=== PATIENT | female | born 1980 | race Caucasian/White ===

== ENCOUNTER → 2018-03-19 16:08 | Outpatient (CLI) | payer OTHER, SELFPAY ==
--- NOTE | 2018-03-20 09:17 | DIET.PN ---
Met for an initial nutrition consult. Pt desires assistance with wt loss. Hasn't really tried to diet and states she doesn't know how to diet or eat healthy. I eat like a teenage boy w/lots of convenience foods, fast food, high carbs. Has been overweight all her life, increasing over years with big increase of approx 30# due to stressful life event about 2 years ago. Is single, school age teacher, lives alone. Exercise: Does not exercise and isn't a gym person. Has arthritis in knees so walking causes pain, but is able to walk. Has a dog that she needs to get out on walks more. Considering pool exercise. DX: Morbid obesity Weights: at high school graduation: 180# 2016: 215# Current/highest: 247# WT today (my scale): 241.5# BMI: 42 Wt goal: 165# (shelter) Ht: 64 Usual diet: Two meals per day w/lite/snack lunch. Breakfast- Protein smoothie Lunch- crax, cheese. Dinner- fast food. Eats some vegies but doesn't often take time to prepare. Likes vegies and fruit. Assessment: Pt demonstrates poor knowledge of balanced diet; little effort to choose/prepare healthful meals, though appears ready to change this. Appears willing to make lifestyle changes, including increasing physical activity. Is realistic in expection of wt loss- anticipating over a year to reach wt goal (75# loss) Intervention: Provided education on healthy plate model, portion control, anti-inflammatory foods vs inflammatory foods; importance of exercise Plan/Goals: Keep written food record, comparing to healthy plate model Increase exercise - 1st goal, walk 3 times/week, increasing to 6-7X weekly F/U in 2 weeks - will assess body comp
== END ==
PROVIDERS: PCP Nurse Practitioner Family; Visit Provider Nurse Practitioner Family
DX: E66.01 Morbid (severe) obesity due to excess calories (principal); Z68.41 Body mass index [BMI] 40.0-44.9, adult
CPT/HCPCS: 97802

== ENCOUNTER → 2020-01-12 11:57 | Outpatient (CLI) | payer OTHER, SELFPAY ==
[2020-01-12 13:13] LABS: Add Manual Diff / Slide Review NO; Basophils Absolute Auto 100 /uL (0-100); Basophils Percent Auto 0.6 % (0-2); Eosinophils Absolute Auto 100 /uL (0-450); Eosinophils Percent Auto 1.3 % (2-4); Hematocrit 43.9 % (36-46); Hemoglobin 14.9 g/dL (12.0-16.0); Lymphocytes Absolute Auto 2000 /uL (1100-4500); Lymphocytes Percent Auto 20.9 % (25-40); Mean Corpuscular HGB Conc 33.9 % (30-36); Mean Corpuscular Hemoglobin 29.5 PG (26-34); Mean Corpuscular Volume 86.9 fL (80-100); Monocytes Absolute Auto 800 /uL (0-900); Monocytes Percent Auto 8.7 % (3-14); Neutrophils Absolute Auto 6600 /uL (1500-7000); Neutrophils Percent Auto 68.5 % (50-75); Platelet Count 301 X10^3/uL (150-400); Red Blood Cell Count 5.05 X10^6/uL (4.0-5.2); Red Cell Distribution Width 13.1 % (11.6-14.8); White Blood Cell Count 9.7 X10^3/uL (4.5-11.0)
[2020-01-12 13:54] LABS: Alanine Aminotransferase 37 IU/L (<35); Albumin 4.3 g/dL (3.5-5.0); Albumin Globulin Ratio 1.3 (1.0-2.8); Alkaline Phosphatase 76 U/L (38-126); Aspartate Aminotransferase 31 IU/L (14-36); Bilirubin Total 0.4 mg/dL (0.2-1.3); Blood Urea Nitrogen 13 mg/dL (7-17); Calcium 9.4 mg/dL (8.4-10.2); Carbon Dioxide 27 mmol/L (22-32); Chloride 103 mmol/L (98-107); Cholesterol 187 mg/dL (140-199); Estimated Glomerular Filt Rate > 60.0 mL/min (>60); Globulin 3.3 g/dL (1.7-4.1); Glucose 91 mg/dL (70-100); HDL Cholesterol 42 mg/dL (40-60); HEMOLYSIS < 15 (0-50); LDL Cholesterol Calculated 122 mg/dL (<100); Potassium 4.7 mmol/L (3.4-5.1); Sodium 138 mmol/L (137-145); Total Protein 7.6 g/dL (6.3-8.2); Triglycerides 116 mg/dL (35-150)
[2020-01-12 14:23] LABS: TSH w/ Reflex to FT4 3.41 uIU/mL (0.47-4.68)
[2020-01-12 15:18] LABS: Vitamin D 25 Hydroxy (D3) 25.1 ng/mL (30.0-100.0)
== END ==
PROVIDERS: PCP Registered Nurse; Referring Provider Registered Nurse; Visit Provider Registered Nurse
DX: E55.9 Vitamin D deficiency, unspecified (principal); R53.83 Other fatigue; Z82.49 Family history of ischemic heart disease and other diseases of the circulatory system
CPT/HCPCS: 36415; 80053; 80061; 82306; 84443; 85025

== ENCOUNTER → 2020-01-14 15:24 | Outpatient (CLI) | payer OTHER, SELFPAY ==
--- NOTE | 2020-01-14 15:26 | DI.US.S_ITS ---
PROCEDURE: US SOFT TISSUE HEAD AND NECK INDICATIONS: LUMP ON NECK TECHNIQUE: Real-time scanning was performed of the neck region of interest, with image documentation. COMPARISON: [facility], , US ABDOMEN LIMITED, 01/14/2020, 15:44. FINDINGS: Within the submental region, there are 3 normal-sized lymph nodes seen, which measure as follows: 0.6 x 0.5 x 0.6 cm 0.4 x 0.5 x 0.4 cm 0.5 x 0.4 x 0.5 cm IMPRESSION: Normal-sized lymph nodes are seen within the submental region. If it would be helpful for clinical management decision making, please consider a dedicated neck CT with IV contrast for further evaluation. Dictated by: Anuj Paredes M.D. on 01/14/2020 at 15:16 Approved by: Anuj Paredes M.D. on 01/14/2020 at 15:17
--- NOTE | 2020-01-14 15:26 | DI.US.S_ITS ---
PROCEDURE: US ABDOMEN LIMITED INDICATIONS: PALABLE LUMPS RIGHT AND LEFT ABDOMEN TECHNIQUE: Real-time focused scanning was performed of the abdomen, with image documentation. COMPARISON: [facility], , US SOFT TISSUE HEAD AND NECK, 01/14/2020, 15:58. FINDINGS: Scanning is performed of the areas of clinical concern involving both sides of the anterior abdominal wall. At the sites, no masses or fluid collections are seen. No lipomas are seen. IMPRESSION: Negative ultrasound. Dictated by: Anuj Paredes M.D. on 01/14/2020 at 15:15 Approved by: Anuj Paredes M.D. on 01/14/2020 at 15:16
[2020-01-15 08:14] LABS: Fecal Immunochemical Test Negative (Negative)
== END ==
PROVIDERS: PCP Registered Nurse; Referring Provider Registered Nurse; Visit Provider Registered Nurse
DX: R22.1 Localized swelling, mass and lump, neck (principal); R22.2 Localized swelling, mass and lump, trunk; Z79.1 Long term (current) use of non-steroidal anti-inflammatories (NSAID)
CPT/HCPCS: 76536; 76705; 82274

== ENCOUNTER → 2020-01-23 11:19 | Outpatient (CLI) | payer OTHER, SELFPAY ==
--- NOTE | 2020-01-23 12:12 | DI.CT.S_ITS ---
PROCEDURE: CT SOFT TISSUE NECK W CON INDICATIONS: lump in neck TECHNIQUE: After the administration of intravenous contrast, 3.0 mm axial sections acquired from the sella to the aortic arch. Additional oblique axial 3.0 mm sections acquired through the pharynx. 3 mm thick coronal and sagittal reformats were generated. For radiation dose reduction, the following was used: automated exposure control. COMPARISON: [facility], , SOFT TISSUE HEAD AND NECK, 01/14/2020, 15:58. FINDINGS: Image quality: Excellent. Lymph nodes: No enlarged lymph nodes seen throughout the neck. There is an ovoid soft tissue radiodensity in the fatty soft tissues just to the right of midline, corresponding to the exact site of patient-located clinical concern, a palpable abnormality that she has noted that is variable in its expression, over 2 years. This measures 6 x 6 x 5 mm. Vessels: Visualized vasculature appears patent. Neck spaces: The oropharynx, nasopharynx, and pharynx demonstrate no mucosal lesions. The vocal cords, false vocal cords, pyriform sinuses, epiglottis, vallecula, and tongue base all appear normal. Extramucosal spaces appear unremarkable. Glands: The parotid and submandibular glands appear normal. Thyroid gland normal. Miscellaneous: Visualized brain and orbits appear normal. Lung apices appear clear. Superficial soft tissues appear normal. Bones: No suspicious bony lesions. Visualized sinuses and mastoids appear unremarkable. IMPRESSION: 6 x 6 x 5 mm rounded soft tissue structure within the fatty soft tissues in the submental area centered just to the right of midline, without adjacent inflammation. No enlarged lymph nodes are found. No inflammatory process is seen. Continued clinical follow-up is recommended. Given long history of this structure with a variable degree of symptomatology it likely is benign and most likely represents a small intermittently reactive lymph node. If clinically desired a surgical consultation for excisional biopsy could be obtained but based on the current imaging findings surgical intervention would not be recommended. Dictated by: Barry Phillip M.D. on 01/23/2020 at 14:45 Approved by: Barry Phillip M.D. on 01/23/2020 at 14:53
== END ==
PROVIDERS: PCP Registered Nurse; Referring Provider Registered Nurse; Visit Provider Registered Nurse
DX: R22.1 Localized swelling, mass and lump, neck (principal)
CPT/HCPCS: 70491; Q9967

== ENCOUNTER → 2020-02-06 15:32 | Outpatient (CLI) | payer OTHER, SELFPAY ==
--- NOTE | 2020-02-06 15:41 | DI.MG.S_ITS ---
Patient Name: JARED RAMON date: 1980 Sex: F Attending Physician: Shaista Silveira Indications: Date: 02/06/2020 15:37 At the request of: HARRISON SKELTON Procedure: MM screening mammo BI BILATERAL DIGITAL SCREENING MAMMOGRAM 3D/2D WITH CAD: 02/06/2020 CLINICAL: Baseline exam. Routine screening. No prior exams were available for comparison. Current study was also evaluated with a Computer Aided Detection (CAD) system. There is an enlarged lymph node in the right breast posterior depth superior region seen on the mediolateral oblique view only. No other significant masses, calcifications, or other findings are seen in either breast. IMPRESSION: INCOMPLETE: NEEDS ADDITIONAL IMAGING EVALUATION The enlarged lymph node in the right breast is indeterminate. A diagnostic mammogram and ultrasound is recommended. This exam was interpreted at Station ID: [id number]. NOTE: For mammograms, a report in lay terms will be sent to the patient. Approximately 15% of breast malignancies will not be visualized mammographically. In the management of a palpable breast mass, a negative mammogram must not discourage biopsy of a clinically suspicious lesion. Electronically Signed By: Bebeto Park M.D., jr/obey:02/06/2020 16:21:44 letter sent: Additional Imaging Needed ACR BI-RADS Category 0: Incomplete 3340F
== END ==
PROVIDERS: PCP Registered Nurse; Referring Provider Registered Nurse; Visit Provider Registered Nurse
DX: Z12.31 Encounter for screening mammogram for malignant neoplasm of breast (principal)
CPT/HCPCS: 77063; 77067

== ENCOUNTER → 2020-03-10 12:30 | Outpatient (CLI) | payer OTHER, SELFPAY ==
--- NOTE | 2020-03-10 | DI.MG.S_ITS ---
UNILATERAL RIGHT DIGITAL DIAGNOSTIC MAMMOGRAM 3D/2D WITH ADDITIONAL VIEWS: 03/10/2020 CLINICAL: Additional evaluation requested from prior study. Comparison is made to exam dated: 02/06/2020 [facility]. The tissue of right breast is heterogeneously dense. This may lower the sensitivity of mammography. There is a lymph node in the right breast posterior depth superior region seen on the mediolateral oblique view only. No other significant masses or calcifications are seen in the breast. IMPRESSION: INCOMPLETE: NEEDS ADDITIONAL IMAGING EVALUATION The lymph node in the right breast is indeterminate. An ultrasound is recommended. This exam was interpreted at Station ID: [id number]. NOTE: For mammograms, a report in lay terms will be sent to the patient. Approximately 15% of breast malignancies will not be visualized mammographically. In the management of a palpable breast mass, a negative mammogram must not discourage biopsy of a clinically suspicious lesion. Electronically Signed By: Bebeto Park M.D., jr/obey:03/10/2020 14:00:49 ACR BI-RADS Category 0: Incomplete 3340F
== END ==
PROVIDERS: PCP Registered Nurse; Referring Provider Registered Nurse; Visit Provider Registered Nurse
DX: R92.8 Other abnormal and inconclusive findings on diagnostic imaging of breast (principal)
CPT/HCPCS: 77065; G0279

== ENCOUNTER → 2021-03-21 16:27 | Outpatient (CLI) | payer OTHER, SELFPAY ==
[2021-03-21 17:29] LABS: Alanine Aminotransferase 29 IU/L (<35); Albumin 4.7 g/dL (3.5-5.0); Albumin Globulin Ratio 1.6 (1.0-2.8); Alkaline Phosphatase 69 U/L (38-126); Aspartate Aminotransferase 29 IU/L (14-36); BUN Creatinine Ratio 29.3 (6-22); Bilirubin Total 0.5 mg/dL (0.2-1.3); Blood Urea Nitrogen 17 mg/dL (7-17); Calcium 10.1 mg/dL (8.4-10.2); Carbon Dioxide 27 mmol/L (22-32); Chloride 101 mmol/L (98-107); Cholesterol 207 mg/dL (140-199); Estimated Glomerular Filt Rate > 60.0 mL/min (>60); Glucose 80 mg/dL (70-100); HDL Cholesterol 55 mg/dL (40-60); HEMOLYSIS < 15 (0-50); LDL Cholesterol Calculated 125 mg/dL (<100); Potassium 4.6 mmol/L (3.4-5.1); Sodium 139 mmol/L (137-145); Total Protein 7.7 g/dL (6.3-8.2); Triglycerides 134 mg/dL (35-150)
== END ==
PROVIDERS: PCP Registered Nurse; Referring Provider Registered Nurse; Visit Provider Registered Nurse
DX: E78.5 Hyperlipidemia, unspecified (principal); Z85.43 Personal history of malignant neoplasm of ovary; I10 Essential (primary) hypertension
CPT/HCPCS: 36415; 80053; 80061; 86304

== ENCOUNTER → 2021-11-25 16:55 | Outpatient (CLI) | payer OTHER, SELFPAY ==
[2021-11-25 17:47] LABS: Hematocrit 39.9 % (36-46); Hemoglobin 13.7 g/dL (12.0-16.0); Mean Corpuscular HGB Conc 34.3 % (30-36); Mean Corpuscular Hemoglobin 29.8 PG (26-34); Mean Corpuscular Volume 86.9 fL (80-100); Platelet Count 312 X10^3/uL (150-400); Red Cell Distribution Width 13.3 % (11.6-14.8); White Blood Cell Count 7.8 X10^3/uL (4.5-11.0)
[2021-11-25 18:06] LABS: Alanine Aminotransferase 20 IU/L (<35); Albumin 4.2 g/dL (3.5-5.0); Albumin Globulin Ratio 1.2 (1.0-2.8); Alkaline Phosphatase 64 U/L (38-126); Aspartate Aminotransferase 24 IU/L (14-36); BUN Creatinine Ratio 21.5 (6-22); Bilirubin Total 0.5 mg/dL (0.2-1.3); Blood Urea Nitrogen 14 mg/dL (7-17); Carbon Dioxide 29 mmol/L (22-32); Chloride 104 mmol/L (98-107); Cholesterol 214 mg/dL (140-199); Estimated Glomerular Filt Rate > 60 mL/min (>60); Globulin 3.4 g/dL (1.7-4.1); Glucose 115 mg/dL (70-100); HDL Cholesterol 44 mg/dL (40-60); HEMOLYSIS < 15 (0-50); LDL Cholesterol Calculated 131 mg/dL (<100); Potassium 3.8 mmol/L (3.4-5.1); Sodium 138 mmol/L (137-145); Total Protein 7.6 g/dL (6.3-8.2); Triglycerides 195 mg/dL (35-150)
[2021-11-25 18:35] LABS: Cancer Antigen 125 9.6 U/mL (0-35)
[2021-11-25 19:47] LABS: TSH w/ Reflex to FT4 1.21 uIU/mL (0.47-4.68)
== END ==
PROVIDERS: PCP Internal Medicine; Referring Provider Internal Medicine; Visit Provider Internal Medicine
DX: E78.2 Mixed hyperlipidemia (principal); I10 Essential (primary) hypertension; Z85.43 Personal history of malignant neoplasm of ovary
CPT/HCPCS: 36415; 80053; 80061; 84443; 85027; 86304

== ENCOUNTER → 2022-01-25 08:49 | Outpatient (CLI) | payer OTHER, SELFPAY ==
--- NOTE | 2022-01-25 | DI.MG.S_ITS ---
BILATERAL DIGITAL SCREENING MAMMOGRAM 3D/2D WITH CAD: 01/25/2022 CLINICAL: Routine screening. Comparison is made to exams dated: 03/10/2020 mammogram and 02/06/2020 mammogram - [facility]. Both breasts are almost entirely fatty (category a/<25% glandular tissue). Current study was also evaluated with a Computer Aided Detection (CAD) system. No significant masses, calcifications, or other findings are seen in either breast. There has been no significant interval change. IMPRESSION: NEGATIVE There is no mammographic evidence of malignancy. A 1 year screening mammogram is recommended. Based on the Tyrer Cuzick model (a risk assessment model) the patient's lifetime risk is 6.2% and her 10 year risk is 1.0%. According to the ACR, ACS, and NCCN guidelines, an annual breast MRI exam along with mammogram is recommended if the patient's lifetime risk is 20% or greater. This exam was interpreted at Station ID: [id number]. NOTE: For mammograms, a report in lay terms will be sent to the patient. Approximately 15% of breast malignancies will not be visualized mammographically. In the management of a palpable breast mass, a negative mammogram must not discourage biopsy of a clinically suspicious lesion. Electronically Signed By: Aly colvin/obey:01/25/2022 12:45:07 letter sent: Normal Exam ACR BI-RADS Category 1: Negative [id number]
--- NOTE | 2022-01-25 08:52 | DI.RAD.S_ITS ---
PROCEDURE: XR DEXA AXIAL SKELETON INDICATIONS: Surgical menopause COMPARISON: None. FINDINGS: This blank DEXA report has been sent in error by the PACS system. The correct and complete report will be forthcoming in 1-2 days. Thank you for your patience and understanding. Dictated by: Bebeto Park M.D. on 01/25/2022 at 15:50 Approved by: Bebeto Park M.D. on 01/25/2022 at 15:57
== END ==
PROVIDERS: PCP Internal Medicine; Referring Provider Internal Medicine; Visit Provider Internal Medicine
DX: Z78.0 Asymptomatic menopausal state (principal); Z12.31 Encounter for screening mammogram for malignant neoplasm of breast; E89.40 Asymptomatic postprocedural ovarian failure; M85.852 Other specified disorders of bone density and structure, left thigh; Z92.23 Personal history of estrogen therapy; Z90.710 Acquired absence of both cervix and uterus
CPT/HCPCS: 77063; 77067; 77080

== ENCOUNTER → 2022-08-04 08:42 | Outpatient (CLI) | payer OTHER, SELFPAY ==
--- NOTE | 2022-08-04 08:45 | DI.US.S_ITS ---
PROCEDURE: US PELVIC COMPLETE INDICATIONS: Post menopausal bleeding TECHNIQUE: Real-time scanning was performed of the pelvic organs, with image documentation. Additional endovaginal scanning was necessary due to incomplete visualization of the adnexal and endometrial structures by transabdominal scanning. COMPARISON: None. FINDINGS: Uterus: Uterus is anteverted and normal in size at 9.0 x 4.0 x 4.7 cm. The myometrium is homogeneous. The endometrium measures 10 mm combined thickness. Ovaries: Status post bilateral oophorectomy. Other: No pathologic free abdominal or pelvic fluid. IMPRESSION: Unremarkable sonographic appearance of the pelvis. Status post bilateral oophorectomy. We strive to produce accurate, complete, and clear reports of imaging services. To assist us in improving patient care, this report was composed using standard report templates and voice recognition software. Therefore, it may contain abnormal punctuation, insertions and/or omissions. Occasional wrong-word or sound-alike substitutions may occur. Though we review the report and make efforts to correct it, we do recommend that the report be read carefully in proper context to recognize any text inaccuracies. Dictated by: Gibran Jernigan M.D. on 08/04/2022 at 12:09 Approved by: Gibran Jernigan M.D. on 08/04/2022 at 12:25
== END ==
PROVIDERS: PCP Internal Medicine; Referring Provider Obstetrics & Gynecology; Visit Provider Obstetrics & Gynecology
DX: N95.0 Postmenopausal bleeding (principal); Z79.890 Hormone replacement therapy; Z90.722 Acquired absence of ovaries, bilateral
CPT/HCPCS: 76830; 76856

== ENCOUNTER → 2022-10-02 16:14 | Outpatient (CLI) | payer OTHER, SELFPAY ==
--- NOTE | 2022-10-02 16:15 | DI.RAD.S_ITS ---
PROCEDURE: XR KNEE RT 3V INDICATIONS: knee pain TECHNIQUE: 3 views of the knee were acquired. COMPARISON: [facility] [place], [place], XR KNEE ARTHRITIC SERIES , 05/23/2017, 14:48. FINDINGS: Bones: No fractures or dislocations. Tricompartmental degenerative changes of the knee are present. Severe medial compartment joint space narrowing and spurring. Moderate lateral and patellofemoral compartment narrowing and spurring. Soft tissues: No joint effusion. . IMPRESSION: 1. No acute fracture identified. 2. Tricompartmental degenerative changes of the knee. Dictated by: Kevin Hurtado M.D. on 10/02/2022 at 17:38 Approved by: Kevin Hurtado M.D. on 10/02/2022 at 17:39
--- NOTE | 2022-10-02 16:15 | DI.RAD.S_ITS ---
PROCEDURE: XR KNEE LT 3V INDICATIONS: knee pain TECHNIQUE: 3 views of the knee were acquired. COMPARISON: [facility] [place], RANDEE, XR KNEE ARTHRITIC SERIES , 05/23/2017, 14:48. FINDINGS: Bones: No acute fracture or dislocation identified. Severe medial and patellofemoral compartment joint space loss and spurring. Mild-moderate lateral compartment joint space loss and spurring. Soft tissues: No joint effusion. IMPRESSION: 1. No acute fracture identified. 2. Tricompartmental degenerative changes of the knee, severe at the medial and patellofemoral compartments. Dictated by: Kevin Hurtado M.D. on 10/02/2022 at 17:34 Approved by: Kevin Hurtado M.D. on 10/02/2022 at 17:38
== END ==
PROVIDERS: PCP Internal Medicine; Referring Provider Internal Medicine; Visit Provider Internal Medicine
DX: M15.9 Polyosteoarthritis, unspecified (principal)
CPT/HCPCS: 73562

== ENCOUNTER → 2023-05-22 11:32 | Outpatient (CLI) | payer OTHER, SELFPAY ==
--- NOTE | 2023-05-22 | DI.MG.S_ITS ---
BILATERAL DIGITAL SCREENING MAMMOGRAM 3D/2D WITH CAD: 05/22/2023 CLINICAL: Routine screening. Comparison is made to exams dated: 01/25/2022 mammogram and 02/06/2020 mammogram - [facility]. Both breasts are almost entirely fatty (category a/<25% glandular tissue). Current study was also evaluated with a Computer Aided Detection (CAD) system. No significant masses, calcifications, or other findings are seen in either breast. There has been no significant interval change. IMPRESSION: NEGATIVE There is no mammographic evidence of malignancy. A 1 year screening mammogram is recommended. Based on the Tyrer Cuzick model (a risk assessment model) the patient's lifetime risk is 6.2% and her 10 year risk is 1.0%. According to the ACR, ACS, and NCCN guidelines, an annual breast MRI exam along with mammogram is recommended if the patient's lifetime risk is 20% or greater. This exam was interpreted at Station ID: [id number]. NOTE: For mammograms, a report in lay terms will be sent to the patient. Approximately 15% of breast malignancies will not be visualized mammographically. In the management of a palpable breast mass, a negative mammogram must not discourage biopsy of a clinically suspicious lesion. Electronically Signed By: Samantha reddy/obey:05/22/2023 14:44:03 letter sent: Normal Exam ACR BI-RADS Category 1: Negative 3341F
== END ==
PROVIDERS: PCP Internal Medicine; Referring Provider Internal Medicine; Visit Provider Internal Medicine
DX: Z12.31 Encounter for screening mammogram for malignant neoplasm of breast (principal)
CPT/HCPCS: 77063; 77067

== ENCOUNTER → 2023-10-27 08:58 | Outpatient (CLI) | payer OTHER, SELFPAY ==
[2023-10-27 09:24] LABS: Hematocrit 41.1 % (36-46); Hemoglobin 13.6 g/dL (12.0-16.0); Mean Corpuscular Hemoglobin 29.2 PG (26-34); Mean Corpuscular Volume 88.3 fL (80-100); Platelet Count 292 X10^3/uL (150-400); Red Blood Cell Count 4.66 X10^6/uL (4.0-5.2); Red Cell Distribution Width 14.1 % (11.6-14.8)
[2023-10-27 09:32] LABS: Hemoglobin A1C% w Est Avg Glu 5.4 % (4.0-6.0)
[2023-10-27 09:36] LABS: Alanine Aminotransferase 23 IU/L (<35); Albumin 4.1 g/dL (3.5-5.0); Albumin Globulin Ratio 1.4 (1.0-2.8); Alkaline Phosphatase 59 U/L (38-126); Aspartate Aminotransferase 25 IU/L (14-36); BUN Creatinine Ratio 36.8 (6-22); Bilirubin Total 0.5 mg/dL (0.2-1.3); Blood Urea Nitrogen 21 mg/dL (7-17); Calcium 8.5 mg/dL (8.4-10.2); Carbon Dioxide 28 mmol/L (22-32); Chloride 108 mmol/L (98-107); Cholesterol 213 mg/dL (140-199); Estimated Glomerular Filt Rate > 60 mL/min (>60); Globulin 2.9 g/dL (1.7-4.1); Glucose 95 mg/dL (70-100); HDL Cholesterol 51 mg/dL (40-60); HEMOLYSIS 21 (0-50); LDL Cholesterol Calculated 122 mg/dL (<100); Potassium 4.7 mmol/L (3.4-5.1); Sodium 142 mmol/L (137-145); Triglycerides 202 mg/dL (35-150)
[2023-10-27 10:07] LABS: TSH w/ Reflex to FT4 1.29 uIU/mL (0.47-4.68)
[2023-10-27 10:08] LABS: Cortisol AM (Before 10AM) 9.98 ug/dL (4.46-22.7)
== END ==
PROVIDERS: PCP Internal Medicine; Referring Provider Internal Medicine; Visit Provider Internal Medicine
DX: R73.01 Impaired fasting glucose (principal); I10 Essential (primary) hypertension; E78.2 Mixed hyperlipidemia; E24.0 Pituitary-dependent Cushing's disease
CPT/HCPCS: 36415; 80053; 80061; 82533; 83036; 84443; 85027

== ENCOUNTER 2024-01-22 09:16 | Day surgery (SDC) | payer OTHER, SELFPAY ==
[2024-01-22] MEDS: LACTATED RINGERS 1,000 ML 42 ML IV (09:44)
[2024-01-22 10:04] VITALS: BP 148/85; PULSE 62; RESP 18; TEMP 36.4; O2SAT 93
--- NOTE | 2024-01-22 10:24 | P.HP_ITS ---
History of Present Illness History of Present Illness Date Patient Seen: 01/22/24 Time Patient Seen: 10:24 Chief complaint: SDC Narrative: 43-year-old woman here for screening colonoscopy. She had a previous colonoscopy 20 years ago which was normal. No family history of colon cancer. No abdominal concerns today. [facility] Medical History Venous (peripheral) insufficiency GERD without esophagitis Osteopenia Primary osteoarthritis involving multiple joints Severe obesity (BMI >= 40) Mixed hyperlipidemia Wears glasses Vitamin D deficiency Family history of heart disease Surgical History History of bilateral oophorectomy Anesthesia History of abdominoplasty (~2011) History of knee surgery (~2008) History of removal of ovarian cyst Family History Father Hypertension Mother Hyperlipidemia Hypertension Grandfather Cancer Hypertension Grandmother Hypertension Hyperlipidemia History of heart disease Grandfather Cancer Social History details: Single, no children, 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 Smoking Status: Never smoker alcohol intake: never Meds Home Medications and Allergies Home Medications Medication Instructions Recorded Confirmed Type estradiol 0.1 mg/24 hr semiweekly 1 patch transdermal 2XW #8 patches 06/22/23 09/24/23 Rx transdermal patch progesterone micronized 100 mg 100 mg PO QAM hormone replacement 06/22/23 09/24/23 Rx capsule therapy 30 days #30 caps amlodipine 10 mg tablet (Norvasc) 10 mg PO DAILY HTN #90 tabs 09/24/23 01/22/24 Rx losartan 100 mg tablet 100 mg PO DAILY HTN #90 tabs 09/24/23 01/22/24 Rx meloxicam 15 mg tablet 15 mg PO DAILY #90 tabs 09/24/23 09/24/23 Rx metoprolol succinate 25 mg 25 mg PO DAILY hypertension #90 09/24/23 01/22/24 Rx tablet,extended release 24 hr tabs minoxidil 2.5 mg tablet 5 mg (2 x 2.5 mg) PO DAILY #180 09/24/23 09/24/23 Rx tabs sertraline 100 mg tablet 100 mg PO DAILY #90 tabs 09/24/23 09/24/23 Rx sodium,potassium,mag sulfates 17.5 See Rx Instructions PO .COMPLEX 12/13/23 Rx gram-3.13 gram-1.6 gram oral soln #354 mL (Suprep Bowel Prep Kit) Allergies Allergy/AdvReac Type Severity Reaction Status Date / Time morphine Allergy Intermediate Unconscious Verified 01/22/24 09:54 Exam Vital Signs (past 8 hours): - 01/22/24 10:04 Temperature 97.5 F L Pulse Rate 62 Respiratory Rate 18 Blood Pressure 148/85 H Pulse Oximetry 93 Oxygen Delivery Method Room Air Oxygen Delivery Method Room Air Narrative Exam Narrative: General adult woman alert oriented no acute distress Chest nonlabored respiration Extremities warm well perfused Assessment & Plan Assessment & Plan narrative: The patient requires colorectal screening and colonoscopy is recommended. Technical details were discussed. Risks, benefits, alternatives explained. Risks including but not limited to myocardial infarction, aspiration, bleeding, pain, missed lesion, incomplete examination, need for further radiographic studies, intestinal injury, and need for major abdominal surgery were discussed. All questions were answered to their satisfaction, and they are in agreement with this plan. Time-Based Coding :: [TOTAL MINUTES] spent with patient and on the chart (including review of chart, obtaining history, exam, reviewing outside data, placing orders, documenting exam and treatment plan, and counseling patient) on [DATE].
[2024-01-22 10:45] VITALS: BP 109/71; PULSE 61; RESP 19; TEMP 36.4; O2SAT 94
[2024-01-22 10:50] VITALS: BP 112/62; PULSE 62; RESP 10; TEMP 36.6; O2SAT 94
--- NOTE | 2024-01-22 10:55 | P.OP.COLON_ITS ---
Operative Date/Time/Diagnoses Date of procedure: 01/22/24 Time of procedure: 10:55 Pre-op diagnosis: Colorectal screening Procedure & Clinicians Study performed: Screening colonoscopy Same procedure as scheduled: Yes Indications: Colorectal screening Surgeon: Lion Retana Procedure Notes Procedure in detail: The history and physical was performed/updated and the patient is ASA class is 2. The procedure was discussed in detail with the patient. Potential risks co mplications including infection, bleeding, missed diagnosis, perforation, need for surgery, and were explained. Their questions were answered and informed consent was obtained. Patient was brought to the procedure room and placed standard monitoring equipment. The patient's vital signs were monitored continuously throughout the entire procedure. Prior to starting time-out was performed. The patient was placed in the left lateral recumbent position. Procedural sedation was administered by anesthesia. Examination began with a thorough inspection of the perianal area there was no evidence of fissures, fistulae, external hemorrhoids or cutaneous malignancy. The colonoscopy scope was then placed into the anal canal and was advanced to the cecum, which was identified by the ileocecal valve, the appendiceal orifice and the confluence of the taenia. The scope was then slowly withdrawn examining colon thoroughly in all directions, irrigating it of any residual stool. The scope was retroflexed within the rectum The patient tolerated the procedure well. They will be discharged once criteria are met. The prep was of good/excellent quality. The withdrawl time was 7 minutes. FINDINGS * Unremarkable colonoscopy. Normal healthy colonic mucosa without mass or polyps. Specimen(s): none sent Impression: Normal colonoscopy Post-procedure Recommendations: Colonoscopy in 10 years Disposition: same day surgery
== END 2024-01-22 11:05 | disposition home or self-care (01) ==
PROVIDERS: PCP Internal Medicine; Referring Provider Surgery; Visit Provider Surgery
PROC: 0DJD8ZZ Inspection of Lower Intestinal Tract, Via Natural or Artificial Opening Endoscopic (ICD-10-PCS; CPT 45378; principal; 2024-01-22 10:45)
DX: Z12.11 Encounter for screening for malignant neoplasm of colon (principal)
CPT/HCPCS: 45378; J2704

== ENCOUNTER → 2024-02-20 08:27 | Outpatient (CLI) | payer OTHER, SELFPAY ==
--- NOTE | 2024-02-20 | DI.RAD.S_ITS ---
PROCEDURE: FL UPPER GI SERIES INDICATIONS: Gastro-esophageal reflux disease without esophagitis COMPARISON: None. FINDINGS: Esophagus: There is mildly weakened esophageal peristalsis. No strictures, extrinsic mass effects, or diverticula. Trace elicited gastroesophageal reflux. No hiatal hernia. Stomach: Stomach is normally distensible, without extrinsic mass effects. Pylorus and duodenal bulb demonstrate normal single-contrast morphology. There is ready transit of contrast through the gastric outlet into the small bowel. IMPRESSION: Mild esophageal dysmotility, and trace reflux. No hernia. Dictated by: Aron Ngo M.D. on 02/20/2024 at 11:33 Approved by: Aron Ngo M.D. on 02/20/2024 at 11:34
== END ==
LOC: RAD 08:28
PROVIDERS: PCP Internal Medicine; Referring Provider Surgery; Visit Provider Surgery
DX: K21.9 Gastro-esophageal reflux disease without esophagitis (principal); K22.4 Dyskinesia of esophagus
CPT/HCPCS: 74240

== ENCOUNTER → 2024-03-17 07:04 | Outpatient (CLI) | payer OTHER, SELFPAY ==
--- NOTE | 2024-03-17 07:05 | DI.ECHO.S_ITS ---
[place] [facility] : : [address] : : [place] : : [id number] : : Phone: [phone] Echocardiogram Report + + :Name: JARED RAMON Study Date: 03/17/2024 Height: 64 in : :[facility] ReadingLocation: Weight: 222 lb : : Gender: Female BSA: 2.0 m2 : :: 1980 Age: 43 yrs BP: 143/91 mmHg: :Reason For Study: LEFT VENTRICULAR HYPERTROPHY : :Ordering Physician: LEONID, : :MITZI Performed By: Kirstin Hassan : :Referring: MITZI JAQUEZ : + + Interpretation Summary Normal both left and right ventricle size and function. The ejection fraction is estimated to be 55-60%. No significant valvular abnormality. Procedure: A two-dimensional transthoracic echocardiogram with color flow and Doppler was performed. The study quality was technically adequate. There is no prior echocardiogram noted for this patient. The patient was in sinus bradycardia with heart rates between 50-60 bpm during the exam. Left Ventricle: The left ventricle is normal in size and wall thickness. The ejection fraction is estimated to be 55-60%. There are no focal wall motion abnormalities. Diastolic parameters suggest probable normal left ventricular diastolic function and normal filling pressures. Right Ventricle: The right ventricle is normal in size and function. Atria: The left atrial size is normal. Right atrial size is normal. There is no Doppler evidence for an interatrial shunt. Mitral Valve: The mitral valve is normal in structure and function. There is trace mitral regurgitation. Aortic Valve: The aortic valve is trileaflet. The aortic valve opens well. There is no aortic valve stenosis. No aortic regurgitation is present. Tricuspid Valve: The tricuspid valve is normal in structure and function. There is a trace or physiologic amount of tricuspid regurgitation. Pulmonary artery pressures cannot be estimated because of the lack of a measurable TR jet velocity. Pulmonic Valve: The pulmonic valve leaflets are thin and pliable; valve motion is normal. There is mild pulmonic regurgitation. Great Vessels: The aortic root is normal size. The dimensions of the ascending aorta are normal. The IVC is of normal diameter and collapses greater than 50% with a sniff. This suggests a low right atrial pressure of 3 mm Hg. Pericardium/ Pleura There is no pericardial effusion. There is no pleural effusion. MMode/2D Measurements & Calculations LVIDd: 5.1 cm LVOT diam: 2.0 cm LVIDs: 3.5 cm Ao root diam: 2.7 cm FS: 32.9 % asc Aorta Diam: 3.5 cm EPSS: 0.68 cm Ao Arch Diam (Prox Trans): 3.0 cm IVSd: 0.68 cm LVPWd: 0.75 cm LV hale. diameter/BSA (cm/m^2): 2.5 LV sys. diameter/BSA (cm/m^2): 1.7 LA A2 area: 13.2 cm2 RA long axis: 4.5 cm LA A4 area: 16.5 cm2 RA area: 11.0 cm2 LA length (vol): 4.7 cm RA vol: 22.6 ml LA vol: 39.7 ml RA : 11.1 ml/m2 LA vol index: 19.4 ml/m2 IVC diam: 1.2 cm RVD1 (basal): 3.2 cm TAPSE: 2.1 cm Doppler Measurements & Calculations Ao V2 max: 161.7 cm/sec LVOT Max Connor: 85.4 cm/sec Ao V2 mean: 117.5 cm/sec LV V1 max P.9 mmHg Ao max P.5 mmHg LV V1 VTI: 20.6 cm Ao mean P.9 mmHg GERSON(I,D): 1.7 cm2 Ao V2 VTI: 37.6 cm GERSON(V,D): 1.7 cm2 sev ratio: 0.55 GERSON indexed to BSA (cm^2/m^2): 0.85 MV E max connor: 55.6 cm/sec PA V2 max: 94.0 cm/sec MV A max connor: 67.1 cm/sec PA V2 mean: 65.1 cm/sec MV E/A: 0.83 PA mean P.9 mmHg Med Peak E' Connor: 6.4 cm/sec PA pr(Accel): 39.6 mmHg E/E' med: 8.7 Lat Peak E' Connor: 10.1 cm/sec E/E' lat: 5.5 E/e' average: 7.1 MV dec time: 0.20 sec SV(LVOT): 65.6 ml Electronically signed by: Carolyn Gross on Reading Physician:03/17/2024 09:41 AM
== END ==
LOC: ECHO 07:04
PROVIDERS: PCP Internal Medicine; Referring Provider Internal Medicine; Visit Provider Internal Medicine
DX: I37.1 Nonrheumatic pulmonary valve insufficiency (principal); I51.7 Cardiomegaly; I10 Essential (primary) hypertension
CPT/HCPCS: 93306

== ENCOUNTER → 2025-03-07 11:06 | Outpatient (CLI) | payer OTHER, SELFPAY ==
--- NOTE | 2025-03-07 11:44 | DI.MG.S_ITS ---
MM screening mammo BI: 03/07/2025. BI-RADS: 1 CLINICAL: 44-year old female for bilateral screening mammogram. Tyrer-Cuzick lifetime risk of 4.2%. No personal or first-degree family history of breast cancer. Personal history of ovarian cancer. PRIOR EXAMS 05/22/2023, 01/25/2022, 03/10/2020, 02/06/2020. MAMMOGRAPHY TECHNIQUE: 2D and 3D (tomosynthesis) digital mammographic views obtained, with additional images as needed for full coverage. Current study was also evaluated with a Computer Aided Detection (CAD) system. DENSITY A. The breasts are almost entirely fatty. MAMMOGRAPHY FINDINGS Bilateral: No suspicious mass, asymmetry, microcalcification, or other abnormality seen. IMPRESSION: * No evidence of malignancy. RECOMMENDATIONS Bilateral * Annual screening mammography. OVERALL ASSESSMENT CATEGORY BI-RADS-1: Negative. [employer] recommends annual screening mammography beginning at age 40 for women with average risk of breast cancer. ELECTRONICALLY SIGNED: Gibran Jernigan M.D. on 03/07/2025 at 10:00:00 PM PT Interpreting Station ID: [id number]
== END ==
LOC: MAMMO 11:07
PROVIDERS: PCP Internal Medicine; Referring Provider Internal Medicine; Visit Provider Internal Medicine
DX: Z12.31 Encounter for screening mammogram for malignant neoplasm of breast (principal); R92.313 Mammographic fatty tissue density, bilateral breasts; Z85.43 Personal history of malignant neoplasm of ovary
CPT/HCPCS: 77063; 77067